=== PATIENT | female | born 1960 | race Caucasian/White ===

== ENCOUNTER 2024-03-31 10:47 | Outpatient (CLI) | payer MEDICAID | END 2024-03-31 23:59 | disposition home or self-care (01) | LOC: RAD 10:47 | PROVIDERS: ATTEND Physician Assistant Medical | DX: M50.322 Other cervical disc degeneration at C5-C6 level (principal); M50.323 Other cervical disc degeneration at C6-C7 level; M16.0 Bilateral primary osteoarthritis of hip; E01.0 Iodine-deficiency related diffuse (endemic) goiter; F17.219 Nicotine dependence, cigarettes, with unspecified nicotine-induced disorders | CPT/HCPCS: 72040; 73521; 76536 ==